=== PATIENT | female | born 1935 | race Caucasian/White ===

== ENCOUNTER 2017-01-05 21:20 | Inpatient (IN) ==
[2017-01-05] MEDS ORDERED: ALUM/MAG/SIMETH/LIDO VISC 1:1 30 ML BOTTLE PO STA (22:07)
[2017-01-05] MEDS ORDERED: ONDANSETRON 4 MG/2 ML VIAL IV STA (22:07)
[2017-01-05] MEDS ORDERED: SODIUM CHLORIDE 0.9% 1,000 ML IV STA (22:07)
[2017-01-05] MEDS ORDERED: PANTOPRAZOLE 40 MG VIAL IV STA (22:07)
[2017-01-05] MEDS ORDERED: MORPHINE 2 MG/1 ML SYRINGE IV STA (22:07)
[2017-01-05 22:19] LABS: Basophils # 0.1 10*3/uL (0.0-0.2); Basophils % 0.5 % (0.0-0.8); Eosinophils # 0.1 10*3/uL (0.0-0.87); Eosinophils % 0.8 % (0.00-10.9); Hematocrit 53.9 VOL% (35.7-47.0); Hemoglobin 17.8 GM/DL (12.0-16.0); Immature Granulocytes % 0.5 %; Immature Granulocytes Absolute 0.08 #; Lymphocytes # 4.5 10*3/uL (1.4-4.0); Lymphocytes % 26.3 % (21.3-54.2); Mean Corpuscular Hemoglobin 28 PG (27-34); Mean Corpuscular Volume 85.6 FL (87-102); Mean Platelet Volume 11.1 FL (9.6-12.0); Monocytes # 1.4 10*3/uL (0.11-0.8); Monocytes % 7.9 % (1.7-12.7); Platelet Count 249 T/CUMM (130-400); Red Cell Distribution Width 14.2 % (9.3-17.3); White Blood Count 17.2 T/CUMM (4-12)
[2017-01-05] MEDS ORDERED: PANTOPRAZOLE 40 MG VIAL IV ONE (22:28)
[2017-01-05] MEDS ORDERED: ONDANSETRON 4 MG/2 ML VIAL ONE (22:28)
[2017-01-05] MEDS ORDERED: MORPHINE 2 MG/1 ML SYRINGE ONE (22:29)
[2017-01-05] MEDS ORDERED: ALUM/MAG/SIMETH/LIDO VISC 1:1 30 ML BOTTLE PO ONE (22:29)
[2017-01-05 22:47] LABS: Alanine Aminotransferase 32 U/L (13-56); Albumin 3.7 G/DL (3.4-5.0); Alkaline Phosphatase 61 U/L (45-117); Amylase 20 U/L (25-115); Aspartate Amino Transferase 26 U/L (0-37); Blood Urea Nitrogen 15 MG/DL (7-18); Calcium 9.9 MG/DL (8.5-10.1); Glucose 170 MG/DL (74-106); Osmolality,Calculated 279.7 MOS/KG (273-304); Potassium 3.2 MMOL/L (3.5-5.1); Sodium 138 MMOL/L (136-145); Total Protein 7.8 G/DL (6.4-8.3); Troponin I Only < 0.015 NG/ML (0.00-0.045)
--- NOTE | 2017-01-05 23:31 | Emergency Department Note ---
Min Mayer Gwan, am scribing for, and in the presence of, Osmin Tyler MD 22 :11. Jayson Mayer Charles R, MD, personally performed the services described in this documentation, ascribed by Dale Copeland in my presence, and it is both accurate and complete 331 . Arrival - Arrival Chief Complaint: Abdominal / Flank Pain Stated Complaint: severe pain in stomach ED Nursing Triage Note: C/O Generalized abd pain. 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 Pt is a very poor historian and is very uncooperative at time of triage. 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 Patient is a poor historian and is unable to give direct description of pain or location of pain. Patient had an episode of BM while in ED that was consistent Clostridium Difficile. Her confirmed that her PCP is Dr. Hall. Patient denies that she has had this happen before or having any other medical problems. Onset (ago): hour(s) Consistency: constant Severity: moderate Date of Last Menstrual Period: Hysterectomy Allergies/Adverse Reactions: Allergies Allergy/AdvReac Type Severity Reaction Status Date / Time No Known Allergies Allergy Verified 01/05/17 21:22 Home Medications: Home Medications Medication Instructions Recorded Confirmed Type Unable To Obtain [Unable to Obtain] 01/05/17 01/05/17 History Review of System - Review of System 12 point system: reviewed and no additional remarkable complaints except as stated - Review of System Constitutional: Absent: chills, fever Eyes: Absent: discharge, pain Gastrointestinal: Present: as per HPI, abdominal pain, nausea, diarrhea Medical,Surgical,& Family Hx - Medical History Cardio: History of: Hypertension Neurology: History of: Peripheral Neuropathy Genitourinary: History of: Problems (Microscopic hematuria) Gastrointestinal: History of: Diverticulitis/ Diverticulosis Musculoskeletal: History of: Back/Neck Problems - Social History Smoking Status: Never smoker Frequency of Alcohol Use: None Type of Drug Use: None Exam Vital Signs: Vital Signs Temperature 98.5 F 01/05/17 21:23 Pulse Rate 100 H 01/05/17 21:23 Respiratory Rate 24 01/05/17 21:23 Blood Pressure 130/55 01/05/17 21:23 O2 Sat by Pulse Oximetry 96 01/05/17 21:23 - General General appearance: alert, in no apparent distress - Head Head exam: Present: atraumatic, normocephalic - Eye Eye exam: Present: normal appearance, PERRL, EOMI - ENT ENT exam: Present: normal oropharynx, mucous membranes dry, TM's normal bilaterally - Neck Neck exam: Present: full ROM, trachea midline. Absent: tenderness - Chest Chest inspection: Present: symmetric chest wall rise. Absent: tenderness - Respiratory Respiratory exam: Present: normal lung sounds bilaterally. Absent: respiratory distress - Cardiovascular Cardiovascular exam: Present: normal rhythm, tachycardia - Abdominal Exam Abdominal exam: Present: distention, tenderness (diffuse abdominal tenderness), hyperactive bowel sounds (patient has sxs consistent with C. Diff) - Extremities Exam Extremities exam: Present: full ROM. Absent: tenderness - Back Exam Back exam: Present: full ROM. Absent: tenderness - Neurological Exam Neurological exam: Present: alert, oriented X3, CN II-XII intact. Absent: motor sensory deficit - Psychiatric Psychiatric exam: Present: normal affect, normal mood - Skin Skin exam: Present: warm, dry, intact, normal color Course - Consultations Consultation #1: Hospitalist will admit patient Time: 00:10 Results - Labs CBC & BMP: 01/05/17 22:03 01/05/17 22:03 Lab Results: I have reviewed the patients labs Labs: Laboratory Tests 01/05/17 22:03 WBC 17.2 H RBC 6.30 H Hgb 17.8 H Hct 53.9 H MCV 85.6 L Plt Count 249 Neut # (Auto) 11.0 H Lymph # (Auto) 4.5 H Hamlin # (Auto) 1.4 H Laboratory Tests 01/05/17 01/05/17 22:03 22:03 Sodium 138 Potassium 3.2 L Chloride 103 Carbon Dioxide 23 Anion Gap 15.2 H BUN 15 Creatinine 1.00 Glucose 170 H Lactic Acid 5.0 H Globulin 4.1 H Albumin/Globulin Ratio 0.9 L Amylase 20 L Blood Type A NEGATIVE Antibody Screen Negative Critical Care Time Critical Care Time: Yes Total Critical Care Time: 60 Disposition Clinical Impression: Gastroenteritis, Abdominal pain, Enteritis, Leukocytosis, Nausea vomiting and diarrhea, Sepsis Case discussed with: patient, patient's family Disposition: Still a Patient Condition: Guarded Time of Disposition: 00:12 Sepsis - Sepsis Classification of Sepsis: Sepsis - Physical Exam Respiratory exam: clear to auscultation bilaterally Capillary Refill: Less Than 3 Seconds
[2017-01-05 23:40] LABS: PT Patient Result 10.8 SECS; Partial Thromboplastin Time 22.7 SECS (0-40)
[2017-01-06 00:13] LABS: Allen Test Positive
[2017-01-06 00:14] LABS: ABG Base Excess -2.5 MMOL/L (-2.5-2.5); ABG HCO3 18.1 MMOL/L (20-26); ABG Oxygen Saturation 96.9 % (95-100); ABG PCO2 23.3 MM HG (35-48); ABG PH 7.507 (7.35-7.45); ABG PO2 80.5 MM HG (80-95); ABG TCO2 18.8 MMOL/L (23-27)
[2017-01-06] MEDS ORDERED: HYDROmorphone 2 MG/1 ML VIAL IV ONE (01:02)
[2017-01-06] MEDS ORDERED: HYDROmorphone 2 MG/1 ML VIAL ONE (01:03)
[2017-01-06] MEDS ORDERED: PIPERACILLIN/TAZOBACTAM 3,375 MG VIAL IV ONE (01:03)
[2017-01-06] MEDS ORDERED: ONDANSETRON 4 MG/2 ML VIAL ONE (01:12)
[2017-01-06] MEDS: PIPERACILLIN/TAZOBACTAM 3,375 MG in SODIUM CHLORIDE 0.9% 100 ML IV SCH ×3 (01:20→17:47)
[2017-01-06] MEDS ORDERED: ONDANSETRON 4 MG/2 ML VIAL IV STA (01:27)
[2017-01-06] MEDS ORDERED: ONDANSETRON 4 MG/2 ML VIAL IV PRN (01:43)
[2017-01-06] MEDS ORDERED: ACETAMINOPHEN 325 MG TABLET PO PRN (01:43)
[2017-01-06] MEDS: VANCOMYCIN INJ 1,250 MG in SODIUM CHLORIDE 0.9% 250 ML IV SCH ×2 (02:30→15:10)
--- NOTE | 2017-01-06 03:48 | Hospitalist History & Physical ---
<Darline Mejia - Last Filed: 01/06/17 03:35> Assessment and Plan - Time spent with patient Time spent with patient: Greater than 30 minutes (1) Severe sepsis Status: Acute Assessment and plan: Admit to hospitalist services. Initial presentation HR 100, RR 24, WBC 17.2, Lactic acid 5.0. Suspected GI or infection. Memory loss. Blood cultures obtained in ED; follow. Stool cultures and C-Diff collected in ED; follow. UA/culture ordered in ED but not collected yet; follow. NS 1000 ml bolus given in ED. Continue hydration with NS at 100 ml/hr. Zosyn 3.375 mg IV Q8 hours. Vancomycin 1 gram IV Q12 hours. Flagyl 500 mg IV Q8 hours. Recheck CBC in am. Recheck Lactic acid. Current Visit: Yes (2) Enteritis Status: Acute Assessment and plan: As above. Current Visit: Yes (3) Abdominal pain Status: Acute Assessment and plan: As above. No gall stones on CT reported by ERP, but RUQ US in am in case radiolucent stones present. Browns 7.5 mg PO Q6 hours PRN moderate pain. Clear liquid diet. Current Visit: Yes (4) Diarrhea Status: Acute Assessment and plan: As above. Current Visit: Yes (5) Leukocytosis Status: Acute Assessment and plan: As above. Current Visit: Yes (6) Hyperglycemia Status: Acute Assessment and plan: Patient denies Hx of DM. However, BG was 170. Check HA1C and Lipid panel in am. Hydrate. Current Visit: Yes (7) Hypertension Status: Chronic Assessment and plan: Patient was unable to remember current medications. Stable for now. Acquire home medications. Continue to monitor. Current Visit: Yes (8) DVT prophylaxis Status: Acute Assessment and plan: Lovenox 40 mg SQ daily. Current Visit: Yes History of Present Illness Chief complaint: abdominal pain History of present illness: Ms. Taylor is a 81 year old female with a past medical history of Diverticulosis/Diverticulitis s/p colectomy and HTN who presented to the emergency department of [facility] with complaints of generalized abdominal pain with sudden onset around 17:00-18:00. Her spouse reports that she was in her usual state of health at mid afternoon, but when he came home around 19:00, she was writhing in severe abdominal pain. She does complain of some diarrhea but also reports that she has had some diarrhea at least every few days since her colectomy. She denies nausea, vomiting, chest pain, SOB, and fever. Her work up in the ED was significant for elevated WBC of 17.2 and a lactic acid of 5.0. The report for her CT abd/pelvis is still pending, but the ERP reports that it only showed enteritis. She was given morphine for pain soon after arrival with no reduction in pain. She was subsequently given Dilaudid 1 mg IV which helped her pain significantly, and she is now resting comfortably. Hospitalist services were consulted, and the patient will be admitted for further evaluation and treatment. Home Medications Medication Instructions Recorded Confirmed Type Unable To Obtain [Unable to Obtain] 01/05/17 01/05/17 History Allergies Allergy/AdvReac Type Severity Reaction Status Date / Time No Known Allergies Allergy Verified 01/05/17 21:22 Medical,Surgical,& Family Hx - Medical History Cardio: History of: Hypertension Neurology: History of: Peripheral Neuropathy Genitourinary: History of: Problems (Microscopic hematuria) Gastrointestinal: History of: Diverticulitis/ Diverticulosis Musculoskeletal: History of: Back/Neck Problems - Surgical History Abdominal Surgeries: Surgical HX of: Abdominal Surgery (colectomy), Appendectomy Reproductive Surgeries: Surgical HX of;: Hysterectomy - Family History Family History: Reports;: Family Hypertension - Social History Smoking Status: Never smoker Have you smoked in the last 12 months: No Frequency of Alcohol Use: None Type of Drug Use: None Marital Status: Lives With:: Spouse Functional capacity: independent ambulation - Constitutional Constitutional: Absent: chills, fever(s), lethargy, malaise, weakness - EENT Eyes: Absent: blurry vision, diplopia, loss of vision Ears: Absent: decreased hearing, ear discharge, ear pain Nose, mouth and throat: Absent: headache(s), nasal congestion, sore throat - Cardiovascular Cardiovascular: Absent: chest pain at rest, chest pain with activity, diaphoresis, dyspnea, edema, orthopnea, palpitations - Respiratory Respiratory: Absent: cough, dyspnea, wheezing - Gastrointestinal Gastrointestinal: Present: abdominal pain, diarrhea. Absent: constipation, nausea, vomiting - Genitourinary Genitourinary: Absent: dysuria, flank pain, urinary frequency - Musculoskeletal Musculoskeletal: Present: back pain. Absent: arthralgias, joint swelling, muscle weakness, myalgias - Neurological Neurological: Present: memory loss. Absent: numbness, paresthesias, syncope - Psychiatric Psychiatric: Present: memory loss. Absent: confusion - Endocrine Endocrine: Absent: cold intolerance, polydipsia, polyphagia, polyuria - Hematologic/Lymphatic Hematologic/Lymphatic: Absent: easy bleeding, easy bruising Exam - Constitutional Vitals: Period Temp Pulse Resp BP Sys/Mason Pulse Ox Last 24 Hr 98.5 F 89-100 20-24 129-130/55-80 96 Exam: Constitutional System: Afebrile. Moderate distress before pain medication, no distress after No tremulousness. Head: Normocephalic, atraumatic. Ears, Nose and Throat System: No pain or tenderness. No epistaxis or discharge Eyes System: Pupils equal, round, and reactive. Extraocular muscles intact. Neck: Supple, without adenopathy, No jugular venous distention. No thyromegaly, neck mass, or prior surgery apparent. Respiratory System: Chest clear to auscultation. Cardiovascular System: Heart with regular rate and rhythm. No murmur. GI System: Abdomen distended, Tender throughout; slightly more so in RLQ, no rebound tenderness. Hypo active bowel sounds present. Musculoskeletal System: Limbs with no pedal edema. Full distal pulses. Normal capillary refill. Neurological System: No discernable sensory deficit. No aphasia Psychiatric System: Conversation is rational; however she reports having no memory and can not answer questions from the onset of pain until arrival in the ED. Results - Labs CBC & BMP: 01/05/17 22:03 01/05/17 22:03 Lab Results: I have reviewed the past 24 hour labs - Diagnostic Findings Procedure: Abdominal x-ray: pending, Chest x-ray: pending, CT Abdomen and Pelvis : pending <Oneil Carney - Last Filed: 01/06/17 04:48> Assessment and Plan (1) Abdominal pain Status: Acute Assessment and plan: I saw and examined the patient in conjunction with nurse practitioner Darline Mejia. As above she presented with sudden abdominal pain. Interestingly when I saw her she said the pain was completely gone after receiving her dose of Dilaudid. When I asked what the pain was like when it began she said she could not remember a thing during the first 2 or more hours she had the pain. She said the first memory she has was when she was in the emergency room. She does not recall her coming home or her complaining of severe pain or even being brought to the hospital. During the interview she was completely intact mentally with normal affect and orientation. As above abdominal CT was fairly unremarkable. Her pain is gone however her white count was 17,000 and lactic acid level was elevated at 5.0. For this reason I agree with empiric antibiotics as ordered above as well as getting abdominal ultrasound and GI consult. Current Visit: Yes History of Present Illness History of present illness: Ms. Taylor is a 81 year old female Exam - Constitutional Vitals: Period Temp Pulse Resp BP Sys/Mason Pulse Ox Last 24 Hr 98.5 F-99.6 F 89-108 18-24 129-143/55-97 93-96 Results - Labs CBC & BMP: 01/05/17 22:03 01/05/17 22:03
[2017-01-06] MEDS: SODIUM CHLORIDE 0.9% 1,000 ML IV SCH ×3 (04:18→23:39)
[2017-01-06 04:29] LABS: Apearance,Urine CLEAR (Clear); Bilirubin,Urine Negative (Negative); Blood, Urine Small mg/dL (Negative); Glucose,Urine (UA) 50 mg/dL (Negative); Ketones,Urine Negative (Negative); Mucus,Urine Occasional /LPF (Occasional); Nitrite,Urine Negative (Negative); Protein,Urine 30 MG/DL; RBC,Urine 3 /HPF (0-4); Squamous Epithelial Cell,Urine Occasional /HPF (0-10); Urine Color Yellow (Yellow); Urine Specific Gravity > 1.060 (1.001-1.035); Urine Urobilinogen < 2.0 EU/DL (0.2-1.0); WBC,Urine 1 /HPF (0-6)
[2017-01-06] MEDS: metroNIDAZOLE INJ 500 MG in PREMIX 1 EACH IV SCH ×3 (05:33→22:40)
[2017-01-06 05:42] LABS: Basophils % 0.3 % (0.0-0.8); Eosinophils % 0.2 % (0.00-10.9); Hematocrit 48.6 VOL% (35.7-47.0); Hemoglobin 15.9 GM/DL (12.0-16.0); Immature Granulocytes % 0.5 %; Immature Granulocytes Absolute 0.07 #; Lymphocytes # 2.4 10*3/uL (1.4-4.0); Lymphocytes % 17.4 % (21.3-54.2); Mean Corpuscular HGB Conc 32.7 GM/DL (32-36); Mean Corpuscular Hemoglobin 28 PG (27-34); Mean Corpuscular Volume 86.3 FL (87-102); Mean Platelet Volume 11.4 FL (9.6-12.0); Monocytes # 0.9 10*3/uL (0.11-0.8); Monocytes % 6.2 % (1.7-12.7); Neutrophils # 10.3 10*3/uL (1.4-7.4); Neutrophils % 75.4 % (38.7-73.9); Platelet Count 227 T/CUMM (130-400); Red Blood Count 5.63 MC/CUMM (3.8-5.5); Red Cell Distribution Width 14.3 % (9.3-17.3); White Blood Count 13.6 T/CUMM (4-12)
[2017-01-06 06:19] LABS: Albumin 3.3 G/DL (3.4-5.0); Bilirubin,Total 1.1 MG/DL (0.2-1.0); Calcium 9.5 MG/DL (8.5-10.1); Osmolality,Calculated 288.1 MOS/KG (273-304); Potassium 4.3 MMOL/L (3.5-5.1); Total Protein 6.3 G/DL (6.4-8.3)
--- NOTE | 2017-01-06 06:26 | CT Report ---
Exam: CT abdomen pelvis w con Date: 01/05/2017 10:08 PM Comparison: None Indication: Abdominal pelvic pain Total DLP: 1895.5 mGy*cm Technical: No oral contrast was administered. Images were obtained from the lung bases to the iliac crest continuation through the pelvis with 100 cc of Omnipaque 350 with axial sagittal coronal imaging available for review. Dose reduction was performed with decreasing kv and mA and automated exposure Findings: Study was initially reviewed by C. Lung bases: No obvious infiltrates or effusions present. Some calcification of the left anterior descending coronary artery present. Minimal dependent atelectatic change present in the bases bilaterally Liver and Spleen: Mild fatty infiltration of liver. Hepatic and portal veins and spleen are otherwise unremarkable. Gallbladder and Pancreas: Unremarkable Adrenals: Unremarkable Kidneys: Tiny cyst present on the right kidney measuring less than 1 cm with at least 4 cysts present. A parapelvic cyst is present on the left kidney measuring approximately 2.9 cm. Small calculus is present in the left kidney measuring approximately 2 mm. No obstruction present within the kidneys bilaterally. The ureters are demonstrated to the bladder Stomach: Incomplete distended with air fluid and debris some radiopaque material in the stomach Retroperitoneum: No enlarged lymph nodes. Aorta and IVC: Minimal atherosclerotic plaque in the aorta iliac vessels. No aneurysm noted. Bowel and Mesentery: Surgical changes are present in the right abdomen and right colon. Some fluid-filled loops of bowel are present. Some bowel wall thickening is noted. Some stranding in the adjacent mesentery is present. Scattered diverticular changes are also present. Prior appendectomy by history. Some free fluid is present. No obvious pneumoperitoneum. Pelvis: Bladder: Partially distended with contrast. Fluid: Trace free fluid Lymph nodes: No enlarged lymph nodes. Pelvic organs: Previous hysterectomy no adnexal masses are present. Osseous structures: Degenerative change present along the thoracolumbar spine. Prior vertebral plasty T9. Mild compression deformities are present T12 and L1. Discogenic disease is present at multiple levels. The bony pelvis is intact. Injection granulomas are noted. Facet arthropathy is present. Impression: 1. Hepatic fatty infiltration of the liver 2. Findings component of enteritis with inflammation of the small bowel and small amount of the adjacent ascites and stranding present 3. Multiple cystic lesions suspected within the kidneys bilaterally 4. Previous vertebral plasties and multiple compression deformities and intervertebral discogenic disease. PROCEDURE INTERPRETED AT [facility] DEPARTMENT OF RADIOLOGY Final Report Signed by: Dr. Charles Alcazar
[2017-01-06 06:38] LABS: Risk Ratio 3.72; VLDL CHOLESTEROL 29.2 MG/DL
--- NOTE | 2017-01-06 06:55 | XRay Report ---
Exam: XR chest 1V portable Date: 01/05/2017 10:09 PM Indication: Abdominal pain Comparison: None Technical: AP Findings: Mild cardiac prominence is present. Atelectatic change present left base. The exam reveals no obvious pneumothorax. Previous vertebral plasty at the lower thoracic spine. Mild scarring in the perihilar regions. External cardiac leads are present. Impression: 1. Minimal atelectatic change left base 2. Previous vertebral plasty lower thoracic spine 3. Borderline cardiac enlargement PROCEDURE INTERPRETED AT [facility] DEPARTMENT OF RADIOLOGY Final Report Signed by: Dr. Charles Alcazar
--- NOTE | 2017-01-06 07:24 | XRay Report ---
Exam: XR abdomen complete w decub Date: 01/05/2017 10:08 PM Indication: Abdominal pain Comparison: 09/03/2015 Technical: Left lateral decubitus and supine imaging. Findings: Mild cardiac prominence present. Some scarring is present in the lung bases. No obvious effusions. The liver shadow is unremarkable. The spleen shadow reveals granuloma changes. Surgical clips present in the right abdomen lower quadrant. Small calcifications in the left kidney. The bony structures reveal previous vertebral plasty at approximately T9. No obvious pneumoperitoneum nonspecific GI pattern. Impression: 1. Previous surgery right lower quadrant 2. Left nephrolithiasis 3. Splenic granuloma changes 4. Phleboliths present true pelvis 5. Prior vertebral plasty PROCEDURE INTERPRETED AT [facility] DEPARTMENT OF RADIOLOGY Final Report Signed by: Dr. Charles Alcazar
--- NOTE | 2017-01-06 08:18 | Ultrasound Report ---
Exam: US right upper quadrant Date:01/06/2017 642 AM Indication: Abdominal pain Comparison: CT abdomen pelvis Findings: Liver: 15.4 cm. No focal abnormality present with fatty infiltration. Hepatic and portal veins are patent. Gallbladder: Normal size shape and configuration. CBD: 4.4 mm Pancreas: Normal size shape and configuration Kidneys Right kidney: 12 x 5.3 x 4.8 cm. No focal mass present. No hydronephrosis perinephric fluid collections present. The tiny cyst in the right kidney or not clearly demonstrated. No focal mass otherwise noted Left kidney: 10.3 x 5.5 x 4.5 cm. There is a cyst measuring 2 x 2.5 x 2.2 cm in the left renal pelvis area. No hydronephrosis perinephric fluid collections present. Aorta IVC: No obvious aneurysm aorta vessels and IVC are unremarkable Spleen: 7.5 x 2.3 x 1.8 cm. Ascites: None Impression: 1. Simple cyst of the left kidney present. 2. No focal masses otherwise noted in the abdomen or pelvis Ultrasound images were stored and captured PROCEDURE INTERPRETED AT [facility] DEPARTMENT OF RADIOLOGY Final Report Signed by: Dr. Charles Alcazar
[2017-01-06] MEDS: PANTOPRAZOLE 40 MG TABLET PO SCH (09:17)
[2017-01-06] MEDS: ENOXAPARIN 40 MG/0.4 ML SYRINGE SUBCUT SCH (09:17)
--- NOTE | 2017-01-06 11:53 | Event Note ---
Ms Taylor was admitted today 01/06/17 at 3 a.m. stable and on monitor. She verbalized feeling at little better at time of exam. She reports she still feels bloated and has constant tenderness. GI has been consulted for generalized abdominal tenderness and discomfort. Vital Signs are stable. We will follow up with GI and greatly appreciate their assistance with care. Continue to monitor and repeat a.m. labs.
--- NOTE | 2017-01-06 12:50 | Gastrointestinal Consult Note ---
Assessment and Plan (1) Acute mesenteric ischemia Status: Acute Assessment and plan: This patient has a number of factors that lead me to believe that she had an episode of acute mesenteric ischemia probably arterial occlusion in nature. She has an acute onset of abdominal pain in time with extreme right thing despite not much of a change in physical exam findings otherwise, an elevated lactic acid level, ascites and bowel wall thickening in the small bowel on CT scanning and a leukocytosis as well. This is the first episode the patient has had that we know of. She has already been started on Lovenox, we can certainly check her for embolic foci, she is getting antibiotic coverage for the leukocytosis and bacterial translocation. She would likely benefit from aspirin as an outpatient. She is not so severe that she requires surgery or embolectomy but these may be necessary in the future. I do not feel like she is bad enough to require arteriography but she might benefit from a CT angiogram in order to look at the trunks of the vessels grossly. Given the CT scan bowel wall thickening superior mesenteric artery might be the source of the narrowing if present. Stenting can sometimes be helpful as well. We will get another lactic acid level tomorrow to make sure this is becoming more normal over time. Cardiology may have other suggestions as well. Current Visit: Yes (2) History of diverticulitis Status: Acute Assessment and plan: Patient states that she has not had an episode of diverticulitis in the last 4 years and previously she required surgery 11 years before that. I do not believe this is an episode of diverticulitis in the remaining colon. CT scan findings do not corroborate that issue. Patient states that she was told by Dr. Alvarez that she did not require any further colonoscopies. She does not require a endoscopic evaluation for the condition she is being seen for today. Simple observation should do until she is feeling better enough to discharge. She may benefit from use of aspirin/Plavix combination as an outpatient. Current Visit: Yes (3) Leukocytosis Status: Acute Assessment and plan: The leukocytosis is already improving, as is the patient's pain. Recheck this tomorrow along with a lactic acid level. She can likely be switched over to solid food in the near future and oral medications if she does well over the next 24 hours. Current Visit: Yes History of Present Illness Chief complaint: Abdominal pain previously generalized, leukocytosis, elevated lactic acid l History of present illness: Ms. Taylor is a 81 year old female who presented last night at about 5 to 6: 00 PM with the acute onset of severe abdominal pain which was generalized at first but now seems to be settling into the left lower and left upper abdomen. She does have some extreme nausea and some mild diarrhea in association with this. She has had previous episodes of diverticulitis in the past but this did not feel similar to those episodes in fact the patient had initial resection of her right-sided colon approximately 15 years ago with a resection of her left- sided colon approximately 4 years ago and subsequently had a colonoscopy done by Dr. Alvarez again about 4 years ago the results of which we do not know. 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 In the emergency room she was noted to have an elevated white blood cell count of 17.2, this is come down to 13.6 with antibiotic therapy. Initial blood gas demonstrated some slight alkalosis which was respiratory in nature but most interestingly the patient's lactic acid level was noted to be 5.0 (normal between 0.4 and 2.0) and over the evening time as the patient's pain has improved this is come down to 3.3. CT scan demonstrated dilated loops of small bowel just above the patient's resection line for the remnants of the right colon. There was ascites in this area and bowel wall thickening. This combined with a lactic acid level that was elevated indicating that there was a mesenteric ischemia process going on here. With fluid hydration and oxygen, as well as use of Lovenox and antibiotic coverage using Pipracillin/vancomycin/ metronidazole, the symptoms have improved considerably. She is able to tolerate some clear liquids. We will need to watch her and see if further nausea and vomiting occur. Home Medications Medication Instructions Recorded Confirmed Type Unable To Obtain [Unable to Obtain] 01/05/17 01/05/17 History Allergies Allergy/AdvReac Type Severity Reaction Status Date / Time No Known Allergies Allergy Verified 01/05/17 21:22 Medical,Surgical,& Family Hx - Medical History Cardio: History of: Hypertension Neurology: History of: Peripheral Neuropathy Genitourinary: History of: Problems (Microscopic hematuria) Gastrointestinal: History of: Diverticulitis/ Diverticulosis Musculoskeletal: History of: Back/Neck Problems - Surgical History Abdominal Surgeries: Surgical HX of: Abdominal Surgery (colectomy), Appendectomy Reproductive Surgeries: Surgical HX of;: Hysterectomy - Family History Family History: Reports;: Family Hypertension - Social History Smoking Status: Never smoker Frequency of Alcohol Use: None Type of Drug Use: None ROS unobtainable: due to dementia Exam - Constitutional Vitals: Period Temp Pulse Resp BP Sys/Mason Pulse Ox Last 24 Hr 97.6 F-99.6 F 88-108 18-24 113-208/30-131 92-98 General appearance: no acute distress Exam: Constitutional: Well-developed, well-nourished, alert, and in no acute distress Head and face: Head: Normocephalic atraumatic Eyes: Conjunctiva without injection, no gross scleral icterus, pupils equal and round bilaterally Ears: Intact to conversation in both ears Nose: External appearance is normal, nares patent Mouth: Oral mucous membranes moist without erythema dentition noted to be without erosion Neck: Normal appearance, no masses or tenderness, trachea midline Thyroid: Gland midline and appropriate size for age Respiratory: Normal respiratory effort, clear to auscultation without wheezes, rhonchi or rales Cardiovascular: Regular rate and rhythm, normal S1, S2, the exam is without rubs, murmurs or gallops. Gastrointestinal: Moderately tender to palpation in LLQ >> LUQ, multiple 6 surgical abdominal scars are noted. Normal active bowel sounds, tone normal without rigidity or guarding, no masses present, no hepatomegaly, no spleen tip felt. Rectal exam shows good tone no external fissures or fistulas stool present yellow and guaiac negative Lymphatic: Neck without adenopathy, axilla without lymphadenopathy present Musculoskeletal: Right and left lower extremities without evidence of edema Skin and subcutaneous tissue: No rashes or ulcerations noted, normal skin turgor, digits and nails without clubbing/cyanosis/deformities. Neurologic: The patient is grossly oriented to person place and time, cranial nerves show tongue movements are normal with normal tongue extrusion midline, light touch sensation is intact. Psychiatric: No hallucinations or delusions are present, does not appear depressed, moderate dementia appears to be present Results - Labs CBC & BMP: 01/06/17 04:20 01/06/17 04:20
[2017-01-06] MEDS: GABAPENTIN 600 MG TABLET PO SCH (22:47)
[2017-01-06] MEDS: DULoxetine 30 MG CAPSULE PO SCH (22:47)
[2017-01-06] MEDS ORDERED: VALSARTAN/HCTZ 80-12.5 MG TABLET PO SCH (23:00)
[2017-01-07] MEDS: VANCOMYCIN INJ 1,250 MG in SODIUM CHLORIDE 0.9% 250 ML IV SCH (02:03)
[2017-01-07] MEDS: PIPERACILLIN/TAZOBACTAM 3,375 MG in SODIUM CHLORIDE 0.9% 100 ML IV SCH ×2 (03:53→11:32)
[2017-01-07] MEDS: SODIUM CHLORIDE 0.9% 1,000 ML IV SCH (03:56)
[2017-01-07 05:10] LABS: Basophils % 0.4 % (0.0-0.8); Eosinophils # 0.2 10*3/uL (0.0-0.87); Eosinophils % 2.8 % (0.00-10.9); Hematocrit 41.7 VOL% (35.7-47.0); Hemoglobin 13.4 GM/DL (12.0-16.0); Immature Granulocytes % 0.3 %; Immature Granulocytes Absolute 0.02 #; Lymphocytes # 2.5 10*3/uL (1.4-4.0); Lymphocytes % 31.6 % (21.3-54.2); Mean Corpuscular HGB Conc 32.1 GM/DL (32-36); Mean Corpuscular Hemoglobin 28 PG (27-34); Mean Corpuscular Volume 87.4 FL (87-102); Monocytes # 0.9 10*3/uL (0.11-0.8); Monocytes % 10.8 % (1.7-12.7); Neutrophils # 4.3 10*3/uL (1.4-7.4); Neutrophils % 54.1 % (38.7-73.9); Platelet Count 192 T/CUMM (130-400); Red Blood Count 4.77 MC/CUMM (3.8-5.5); Red Cell Distribution Width 14.6 % (9.3-17.3)
[2017-01-07 05:47] LABS: Calcium 8.6 MG/DL (8.5-10.1); Magnesium 2.1 MG/DL (1.8-2.4); Osmolality,Calculated 283.1 MOS/KG (273-304); Potassium 3.6 MMOL/L (3.5-5.1)
[2017-01-07] MEDS: metroNIDAZOLE INJ 500 MG in PREMIX 1 EACH IV SCH ×2 (07:58→16:51)
[2017-01-07] MEDS: PANTOPRAZOLE 40 MG TABLET PO SCH (09:08)
[2017-01-07] MEDS: ENOXAPARIN 40 MG/0.4 ML SYRINGE SUBCUT SCH (09:08)
--- NOTE | 2017-01-07 14:11 | Gastrointestinal Progress Note ---
Assessment and Plan (1) Acute mesenteric ischemia Status: Acute Assessment and plan: This patient has a number of factors that lead me to believe that she had an episode of acute mesenteric ischemia probably arterial occlusion in nature. She has an acute onset of abdominal pain in time with extreme right thing despite not much of a change in physical exam findings otherwise, an elevated lactic acid level, ascites and bowel wall thickening in the small bowel on CT scanning and a leukocytosis as well. This is the first episode the patient has had that we know of. She has already been started on Lovenox, we can certainly check her for embolic foci, she is getting antibiotic coverage for the leukocytosis and bacterial translocation. She would likely benefit from aspirin as an outpatient. She is not so severe that she requires surgery or embolectomy but these may be necessary in the future. I do not feel like she is bad enough to require arteriography but she might benefit from a CT angiogram in order to look at the trunks of the vessels grossly. Given the CT scan bowel wall thickening superior mesenteric artery might be the source of the narrowing if present. Stenting can sometimes be helpful as well. We will get another lactic acid level tomorrow to make sure this is becoming more normal over time. Cardiology may have other suggestions as well. 01/07/17--the patient's abdominal pain is back to baseline, she is beginning to complain once again of her diarrhea due to the multiple resections in her colon. She states that she has a baseline about 2 bowel movements per day but with a clear liquids being given at this time this is increased somewhat. We are about to advance her diet to a cardiac diet and see if this helps out along with some low-dose Lomotil. Her lactic acid levels down to normal at 1.4. I discussed the findings of her last CT scan with Dr. Mary Maurice today who feels confident that her mesenteric trunks have been appropriately viewed and he has no further need of a CTA looking at these vessels more specifically. We can think about changing her over to oral antibiotics if she is able tolerate a solid diet. My suggestion would be to use 2 medications as anticoagulants in the future to help decrease her risk of future mesenteric ischemic episodes. Current Visit: Yes (2) History of diverticulitis Status: Acute Assessment and plan: Patient states that she has not had an episode of diverticulitis in the last 4 years and previously she required surgery 11 years before that. I do not believe this is an episode of diverticulitis in the remaining colon. CT scan findings do not corroborate that issue. Patient states that she was told by Dr. Alvarez that she did not require any further colonoscopies. She does not require a endoscopic evaluation for the condition she is being seen for today. Simple observation should do until she is feeling better enough to discharge. She may benefit from use of aspirin/Plavix combination as an outpatient. 01/07/17--again this patient is having some mild diarrhea likely in association with her clear liquid diet. She is asking for an antimotility agent to help out with her diarrhea. Will write for some Lomotil twice daily. Current Visit: Yes (3) Leukocytosis Status: Acute Assessment and plan: The leukocytosis is already improving, as is the patient's pain. Recheck this tomorrow along with a lactic acid level. She can likely be switched over to solid food in the near future and oral medications if she does well over the next 24 hours. 01/07/17--This is improved markedly over the past 2 days and is now in the normal range. Again we will watch the patient does with a solid diet and perhaps they can be placed on oral antibiotics tomorrow and consideration of discharge can be pursued. Current Visit: Yes Gastroenterology - PN: Subj Interval history: Adri is back to her baseline as far as abdominal pain. I have impressed upon her that she does not need to be smoking any longer. This needs to be reinforced. Exam (Progress Note) - Constitutional Vitals: Period Temp Pulse Resp BP Sys/Mason Pulse Ox Last 24 Hr 96.3 F-98.3 F 70-96 16-20 135-165/61-95 92-97 General appearance: no acute distress - Head Head exam: Present: normocephalic - Eye Eye exam: Present: EOMI - ENT ENT exam: Present: normal exam - Respiratory Respiratory exam: Present: clear to auscultation bilaterally. Absent: rales, rhonchi - Cardiovascular Cardiovascular exam: Present: regular rate and rhythm - GI/Abdominal GI/Abdominal exam: Present: normal bowel sounds, soft. Absent: distended, guarding, tenderness, rebound - Extremities Exam Extremities exam: Absent: edema - Neurological Exam Neurological exam: Present: alert, oriented X3 - Psychiatric Psychiatric exam: Present: normal affect, normal mood Results - Labs CBC & BMP: 01/07/17 04:41 01/07/17 04:41
[2017-01-07] MEDS ORDERED: DIPHENOXYLATE/ATROPINE 2.5-0.025 MG TABLET PO PRN (14:19)
[2017-01-07] MEDS: ASPIRIN EC 325 MG TABLET PO SCH (14:45)
[2017-01-07] MEDS: CLOPIDOGREL 75 MG TABLET PO SCH (14:45)
--- NOTE | 2017-01-07 14:48 | Hospitalist Progress Note ---
Assessment and Plan (1) Acute mesenteric ischemia Status: Acute Assessment and plan: The patient is improving on supportive care and anti-biotic. We will continue the present treatment for now and change antibiotic to oral medication. The diet is being advanced and we anticipate discharge home tomorrow if improvement continues. Current Visit: Yes Hospitalist: Subjective Interval history: Mrs. Taylor has pain consistent with mesenteric ischemia. The patient is not having any bleeding. The patient is receiving IV antibiotics and supportive care. I coordinated care with Dr. Ibarra. Exam - Constitutional Vitals: Period Temp Pulse Resp BP Sys/Mason Pulse Ox Last 24 Hr 96.3 F-98.3 F 70-96 16-20 135-165/61-95 92-97 General appearance: mild distress - Cardiovascular Cardiovascular exam: Present: regular rate and rhythm - GI/Abdominal GI/Abdominal exam: Present: normal bowel sounds Results - Labs CBC & BMP: 01/07/17 04:41 01/07/17 04:41 Lab Results: I have reviewed the past 24 hour labs
[2017-01-07] MEDS: DULoxetine 30 MG CAPSULE PO SCH (20:46)
[2017-01-07] MEDS: CIPROFLOXACIN 500 MG TABLET PO SCH (20:46)
[2017-01-07] MEDS: GABAPENTIN 600 MG TABLET PO SCH (20:47)
[2017-01-07] MEDS ORDERED: VALSARTAN/HCTZ 80-12.5 MG TABLET PO SCH (21:00)
[2017-01-08] MEDS: metroNIDAZOLE INJ 500 MG in PREMIX 1 EACH IV SCH ×2 (00:09→07:58)
[2017-01-08 04:34] LABS: Basophils % 0.4 % (0.0-0.8); Eosinophils # 0.2 10*3/uL (0.0-0.87); Eosinophils % 2.3 % (0.00-10.9); Hematocrit 41.5 VOL% (35.7-47.0); Hemoglobin 13.4 GM/DL (12.0-16.0); Immature Granulocytes % 0.4 %; Immature Granulocytes Absolute 0.03 #; Lymphocytes # 1.9 10*3/uL (1.4-4.0); Lymphocytes % 25.8 % (21.3-54.2); Mean Corpuscular HGB Conc 32.3 GM/DL (32-36); Mean Corpuscular Hemoglobin 28 PG (27-34); Mean Platelet Volume 10.8 FL (9.6-12.0); Monocytes # 0.9 10*3/uL (0.11-0.8); Monocytes % 12.2 % (1.7-12.7); Neutrophils # 4.4 10*3/uL (1.4-7.4); Neutrophils % 58.9 % (38.7-73.9); Platelet Count 169 T/CUMM (130-400); Red Blood Count 4.77 MC/CUMM (3.8-5.5); Red Cell Distribution Width 14.2 % (9.3-17.3); White Blood Count 7.5 T/CUMM (4-12)
[2017-01-08 05:15] LABS: Calcium 8.8 MG/DL (8.5-10.1); Magnesium 2.1 MG/DL (1.8-2.4); Osmolality,Calculated 278.4 MOS/KG (273-304); Potassium 3.7 MMOL/L (3.5-5.1)
[2017-01-08] MEDS: CLOPIDOGREL 75 MG TABLET PO SCH (07:59)
[2017-01-08] MEDS: ENOXAPARIN 40 MG/0.4 ML SYRINGE SUBCUT SCH (07:59)
[2017-01-08] MEDS: PANTOPRAZOLE 40 MG TABLET PO SCH (07:59)
[2017-01-08] MEDS: ASPIRIN EC 325 MG TABLET PO SCH (07:59)
[2017-01-08] MEDS: CIPROFLOXACIN 500 MG TABLET PO SCH (07:59)
--- NOTE | 2017-01-08 09:42 | Gastrointestinal Progress Note ---
Assessment and Plan (1) Acute mesenteric ischemia Status: Acute Assessment and plan: This patient has a number of factors that lead me to believe that she had an episode of acute mesenteric ischemia probably arterial occlusion in nature. She has an acute onset of abdominal pain in time with extreme right thing despite not much of a change in physical exam findings otherwise, an elevated lactic acid level, ascites and bowel wall thickening in the small bowel on CT scanning and a leukocytosis as well. This is the first episode the patient has had that we know of. She has already been started on Lovenox, we can certainly check her for embolic foci, she is getting antibiotic coverage for the leukocytosis and bacterial translocation. She would likely benefit from aspirin as an outpatient. She is not so severe that she requires surgery or embolectomy but these may be necessary in the future. I do not feel like she is bad enough to require arteriography but she might benefit from a CT angiogram in order to look at the trunks of the vessels grossly. Given the CT scan bowel wall thickening superior mesenteric artery might be the source of the narrowing if present. Stenting can sometimes be helpful as well. We will get another lactic acid level tomorrow to make sure this is becoming more normal over time. Cardiology may have other suggestions as well. 01/07/17--the patient's abdominal pain is back to baseline, she is beginning to complain once again of her diarrhea due to the multiple resections in her colon. She states that she has a baseline about 2 bowel movements per day but with a clear liquids being given at this time this is increased somewhat. We are about to advance her diet to a cardiac diet and see if this helps out along with some low-dose Lomotil. Her lactic acid levels down to normal at 1.4. I discussed the findings of her last CT scan with Dr. Mary Maurice today who feels confident that her mesenteric trunks have been appropriately viewed and he has no further need of a CTA looking at these vessels more specifically. We can think about changing her over to oral antibiotics if she is able tolerate a solid diet. My suggestion would be to use 2 medications as anticoagulants in the future to help decrease her risk of future mesenteric ischemic episodes. 01/08/17--the patient is having no further abdominal pain, she has a improve white blood cell count on oral antibiotics and can certainly be discharged today. The Lomotil has worked for her fairly well and I have written her prescription for this as well as the Cipro and some Protonix as well. I placed a prescription on the front of her chart. I will have Dr. Enzo Guidry write her medications for the aspirin and Plavix to be taken on a daily basis as well. She should follow-up concerning these medications with her primary care doctor and can follow-up with me in the GI clinic on a as needed basis if the pain comes back. She may require angiography down the road if this does present similarly, to decide if stenting is needed. Current Visit: Yes (2) History of diverticulitis Status: Acute Assessment and plan: Patient states that she has not had an episode of diverticulitis in the last 4 years and previously she required surgery 11 years before that. I do not believe this is an episode of diverticulitis in the remaining colon. CT scan findings do not corroborate that issue. Patient states that she was told by Dr. Alvarez that she did not require any further colonoscopies. She does not require a endoscopic evaluation for the condition she is being seen for today. Simple observation should do until she is feeling better enough to discharge. She may benefit from use of aspirin/Plavix combination as an outpatient. 01/07/17--again this patient is having some mild diarrhea likely in association with her clear liquid diet. She is asking for an antimotility agent to help out with her diarrhea. Will write for some Lomotil twice daily. 01/08/17--Patient is doing well on her solid diet, she can certainly be discharged today. Lomotil prescription has been written. This patient will require repeat colonoscopy in 1 year. Current Visit: Yes (3) Leukocytosis Status: Acute Assessment and plan: The leukocytosis is already improving, as is the patient's pain. Recheck this tomorrow along with a lactic acid level. She can likely be switched over to solid food in the near future and oral medications if she does well over the next 24 hours. 01/07/17--This is improved markedly over the past 2 days and is now in the normal range. Again we will watch the patient does with a solid diet and perhaps they can be placed on oral antibiotics tomorrow and consideration of discharge can be pursued. 01/08/17--Improved. Current Visit: Yes Gastroenterology - PN: Subj Interval history: The patient is doing well with her food, her pain is under control and nearly gone. She is ready to be discharged today. She can follow-up with me as needed in the clinic, I have given her copy of my card, to call for follow-up if she needs it in the future. Exam (Progress Note) - Constitutional Vitals: Period Temp Pulse Resp BP Sys/Mason Pulse Ox Last 24 Hr 96.2 F-98.2 F 66-83 16-20 128-167/60-82 92-96 General appearance: no acute distress - Head Head exam: Present: normocephalic - Eye Eye exam: Present: EOMI - Respiratory Respiratory exam: Present: clear to auscultation bilaterally. Absent: rhonchi, stridor, wheezes - Cardiovascular Cardiovascular exam: Present: regular rate and rhythm - GI/Abdominal GI/Abdominal exam: Present: normal bowel sounds, soft. Absent: distended, guarding, tenderness, rebound - Extremities Exam Extremities exam: Absent: edema - Neurological Exam Neurological exam: Present: alert, oriented X3 - Psychiatric Psychiatric exam: Present: normal affect, normal mood - Skin Skin exam: Present: warm Results - Labs CBC & BMP: 01/08/17 04:18 01/08/17 04:18
--- NOTE | 2017-01-08 11:12 | Discharge Summary ---
<Mariama Armstrong - Last Filed: 01/08/17 11:01> Hospital Course - Hospital Course Hospital Course: This is a very pleasant 81-year-old female that presented to the ED at [facility] on the morning of January 06, 2017 for the evaluation of abdominal pain. The patient has a medical history significant for diverticulosis, diverticulitis, hypertension, peripheral neuropathy, chronic neck and back pain. Patient has a surgical history significant for colectomy, appendectomy, and hysterectomy. The patient reported the onset of the above of symptoms on the night prior to presentation. In addition, the patient reported an episode of diarrhea however, reports that her diarrhea is generally a chronic issue with her after her subsequent colectomy. She denied nausea, vomiting, chest pain, dyspnea, and fever. Her symptoms became severe prompting her to present to the ED at [facility] for further evaluation. The patient was assessed at the time of ED presentation. Labs were obtained which were significant for white blood cell count 17.2, hemoglobin 17.8, hematocrit 53.9, potassium 3.2, glucose 170, globulin 4.1, amylase 20, and lactic acid 5.0. Urinalysis was significant for urine specific gravity greater than 1.060, urine blood small, urine urobilinogen less than 2.0, urine leukocytes 3, urine WBC 1, and occasional urine squamous epithelial cells and urine mucus was noted. Arterial blood gas reported pH at 7.507, PCO2 23.3, and HCO3 18.1. Abdominal x-ray was significant for left nephrolithiasis, splenic granuloma changes, phleboliths present to pelvis, and prior vertebral plasty. CT abdomen and pelvis reported hepatic fatty infiltration of the liver, components of enteritis with inflammation of the small bowel small amount of adjacent ascites and stranding was present, multiple cystic lesions suspected within the kidneys bilaterally, and the presence of previous vertebral plasties and multiple compression deformities and intervertebral discogenic disease is noted. The patient was subsequently admitted to the hospitalist service for continuation of care. Intravenous fluid rehydration, empiric antibiotic coverage, protein pump inhibitors, and DVT prophylaxis was initiated at the time of admission. A gastroenterology consultation was requested and recommendations were given; however no immediate surgical intervention or invasive diagnostic testing was warranted. Fluid rehydration and empiric antibiotics were continued. The patient's condition slowly improved. The patient's condition is stable. She has not experienced any significant overnight events. Today, we feel that she is indeed appropriate for discharge to follow-up with her primary care physician and cofounder as directed. In addition, the patient has been given prescriptions for ciprofloxacin, pantoprazole, aspirin, and clopidogrel. Specialty Discharge - Follow Up or Referrals Discharge Plan - Discharge Data Disposition: Disch To Home/Self Care - Discharge Medications New Clopidogrel [Plavix] 75 mg PO DAILY #60 tablet Aspirin EC Tab 325 mg PO DAILY tablet Ciprofloxacin Tab [Cipro Tab] 500 mg PO Q12HR #14 tablet Continue HYDROcodone/ACETAMIN 7.5-325 [[place] 7.5-325] 7.5 - 325 tablet PO Q4-6H PRN PRN Reason: Pain Gabapentin Cap/Tab [Neurontin Cap/Tab] 1,200 mg PO BEDTIME Valsartan/Hctz 80-12.5 [Diovan Hct 80-12.5] 80 mg PO DAILY Duloxetine HCl [Cymbalta] 60 mg PO DAILY - Follow Up or Referral - Forms/Instructions Instructions: Acute Nausea and Vomiting (DC), Acute Diarrhea (GEN), Acute Abdominal Pain (DC) Exam - Constitutional Vitals: Period Temp Pulse Resp BP Sys/Mason Pulse Ox Last 24 Hr 96.2 F-98.2 F 66-83 16-20 128-175/60-82 92-96 Discharge Results Procedures and tests throughout hospitalization: Pending Orders 01/05/17 22:03 Blood Culture Stat 01/05/17 22:07 Urinalysis Stat Labs on day of discharge: Labs from last 24 hours 01/08/17 01/08/17 01/07/17 04:18 04:18 14:31 WBC 7.5 RBC 4.77 Hgb 13.4 Hct 41.5 MCV 87.0 MCH 28 MCHC 32.3 RDW 14.2 Plt Count 169 MPV 10.8 Neut % (Auto) 58.9 Lymph % (Auto) 25.8 [place] % (Auto) 12.2 Eos % (Auto) 2.3 Baso % (Auto) 0.4 Neut # (Auto) 4.4 Lymph # (Auto) 1.9 [place] # (Auto) 0.9 H Eos # (Auto) 0.2 Baso # (Auto) 0.0 Immature Gran % 0.4 Nucleated RBC % 0.0 Immature Gran # 0.03 Nucleated RBCs # 0.00 Immature Plt Fraction 0.0 Sodium 140 Potassium 3.7 Chloride 103 Carbon Dioxide 32 Anion Gap 8.7 BUN 8 Creatinine 0.80 GFR Calculation 85 BUN/Creatinine Ratio 10.00 Glucose 142 H Calculated Osmolality 278.4 Calcium 8.8 Magnesium 2.1 Vancomycin Trough 9.7 L Preliminary micro results at discharge 01/05/17 22:03 Blood Culture - Preliminary Blood No growth at 1 day 01/05/17 22:03 Blood Culture - Preliminary Blood No growth at 1 day DS: Provider Date of admission: 01/06/17 01:43 Primary care physician: Zeynep Hall Attending physician on admission: Oneil Carney MD Consults: 01/06/17 03:25 Consult to Pharmacy [CONS] Routine Reason for Pharmacy Consult: Dose/Manage Vancomycin 01/06/17 04:48 Consult to Physician [CONS] Routine Comment: abdominal pain with elevated white count and lacti Consulting Provider: Simon Ibarra Consult to Specialist Group: Pulmonology When should Consulting Provider be notified: Now Person Notified: Chelsey Date Notified: 01/06/17 Time Notified: 08:35 Discharging clinician: Mariama Armstrong CNP <Enzo Guidry - Last Filed: 01/08/17 13:08> Diagnosis - Discharge Diagnosis (1) Acute mesenteric ischemia Status: Acute Discharge Plan - Discharge Data Condition at Discharge: Stable Discharge Diet: heart healthy Activity: resume usual activities as tolerated
[2017-01-08 12:20] VITALS: BP 175/74
--- NOTE | 2017-01-09 10:21 | Physician Query Form ---
CLICK EDIT DOCUMENT TO SELECT QUERY ANSWER --> OK --> SIGN Isaura Ceron RN, CCDS Certified Clinical Beater Worker Helper W) [phone] (f) [phone] [email or web address]: Make your selection(s) from the choices in EACH section by typing an "x" and enter comments in the comment section. Please use your independent medical judgment in providing your response. This request does not imply that any particular answer is desired or expected. CLINICAL INDICATORS: (Providers should not edit this section) The below diagnosis was documented in the record, but is not consistently noted in subsequent documentation. The medical record indicates that the patient was admitted with Acute mesenteric ischemia, WBC of 17.2, Lactic Acid of 5.0, Pulse of 100#, Respirations of 24#, and Severe Sepsis is mentioned on the 8th; patient was discharged on Ciprofloxacin Tab [Cipro Tab] 500 mg PO Q12HR #14 tablet. Diagnosis: SEPSIS Please clarify the following: (X ) The above diagnosis was monitored, evaluated, and/or treated and is a confirmed diagnosis ( ) The above diagnosis was ruled out ( ) The above diagnosis is still a likely, suspected, probable diagnosis ( ) Other, please specify: ( ) Clinically unable to determine COMMENTS: PLEASE ALSO DOCUMENT RESPONSE IN PROGRESS NOTES AND/OR DISCHARGE SUMMARY Use of terms such as suspected, likely, or probable (associated with a specific diagnosis that is being evaluated, monitored, or treated as if it exists) are acceptable and can be restated in the discharge summary if not ruled out. MTDD
== END 2017-01-08 14:40 | disposition home or self-care (01) | DRG 871 ==
LOC: N.ED 21:20 → SUATTDRO 01-06 01:43 → N.EDINP 01-06 01:43 → N.TELES 01-06 03:17
PROVIDERS: ADMIT Family Medicine; ATTEND Internal Medicine